=== PATIENT | male | born 1940 | race Caucasian/White ===

== ENCOUNTER → 2017-01-05 | Outpatient (CLI) | payer OTHER | LOC: BMCIMAGING 09:37 | PROVIDERS: ATTEND Family Medicine | DX: R05 Cough (principal) ==

== ENCOUNTER → 2017-07-02 | Outpatient (CLI) | payer OTHER | LOC: BMCIMAGING 14:53 | PROVIDERS: ATTEND Nurse Practitioner Adult Health | DX: R07.81 Pleurodynia (principal) | CPT/HCPCS: 71101-PO ==

== ENCOUNTER 2017-07-07 14:24 | Inpatient (IN) | payer OTHER ==
--- NOTE | 2017-07-07 14:33 | EDPHY ---
HPI/HX/ROS/PE/MDM Narrative: CHIEF COMPLAINT: Chest pain and shortness of breath HPI: The patient is a 76 y/o male arriving via EMS who complains of chest pain and shortness of breath, onset 2.5 hours ago. Two years ago he had a pulmonary embolism due to travelling, but was only on anticoagulants for 6 months following the PE. On Saturday, 5 days ago, he had right-sided chest pain. He went to his PCP and had a chest x-ray taken, which was negative for a pulmonary embolism. On Saturday, 2 days ago, he travelled to [place] from [place]. He noted he felt mildly out of breath before the flight, but once he arrived to the airport he had no shortness of breath. This morning he had a dry cough, with a small amount of blood present. After his shortness of breath began today , he was given Nitroglycerin in the field. Denies a history of cardiac symptoms , leg pain, weakness, numbness or other pertinent symptoms. Portions of this note were transcribed by an ED scribe. I personally performed the history, physical exam, and medical decision making; and confirm the accuracy of the information in the transcribed note. REVIEW OF SYSTEMS: Aside from elements discussed in the HPI, a comprehensive 10-point review of systems was reviewed and is negative. PMH: Pulmonary embolism, 2 years ago Basal cell carcinoma SOCIAL HISTORY: Works as a project control officer Lives in [place] Family and friends at bedside PHYSICAL EXAM: General:Patient is alert, in no acute distress. ENT:Eyes are normal to inspection. ENT inspection normal. Neck: Normal inspection. Full range of motion. Respiratory:No respiratory distress. Breath sounds normal bilaterally. Cardiovascular: Regular rate and rhythm. Strong peripheral pulses. Normal cap refill. Abdomen:The abdomen is nontender to palpation. There are no peritoneal signs. There are normal bowel sounds. Back: Normal to inspection. No tenderness to palpation. Skin: Normal color. No rash. Warm and dry. Extremities: Normal appearance. Full range of motion. Neuro: Oriented x3. Normal motor function. Normal sensory function. ED Course: The patient is a 76 y/o male arriving via EMS who presents with shortness of breath and chest pain, onset 2.5 hours ago. He has a history of a pulmonary embolism 2 years ago, but only took anticoagulants 6 months after the PE. His physical exam is normal. Plan for labs, EKG, and chest CT to rule out pulmonary embolism or myocardial infarction. EKG was ordered and interpreted by myself. Please see [employer] system for official reading. 1535: Spoke with Dr. Infante, radiologist; he reports the patient has a pulmonary embolism with a left infarct. Plan on ECHO, 500mL IV Heparin, and admission of patient. 1540: Reassessed patient and discussed imaging findings and admission. He is comfortable with this plan. 1543: Spoke with hospitalist service, Dr. Chávez accepts admission of this patient. MDM: This patient presents with signs and symptoms of pulmonary embolism, confirmed by CTA of the chest. Upon receipt of the results of the CT, I immediately ordered a heparin drip, spoke to the hospitalist for admission and ordered and echocardiogram. The patient remained hemodynamically stable over the course of his ED stay. I see no evidence of PNA, TAD, ACS, PTx or shock. - Data Points Imaging Results: Imaging Impressions Chest/Thorax CTA 07/07/17 14:34 Impression: 1. Moderate to large volume subsegmental bilateral pulmonary emboli. There is suspicion of right heart strain with flattening of the interventricular septum and mild enlargement of the right atrium and right ventricle. 2. Pulmonary infarcts suspected in the lingula inferolaterally and possibly also left lower lobe. Findings discussed with Fredo Herrera MD at 15:35 hour, 07/07/2017. Imaging: Discussed imaging studies w/ call center director Radiologist, I viewed and interpreted images myself Laboratory Results: Laboratory Results 07/07/17 14:31 07/07/17 14:31 07/07/17 07/07/17 07/07/17 14:31 14:31 14:31 WBC 8.85 10^3/uL 10^3/uL (3.80-9.50) RBC 4.70 10^6/uL 10^6/uL (4.40-6.38) Hgb 14.4 g/dL g/dL (13.7-17.5) POC Hgb Hct 42.6 % % (40.0-51.0) POC Hct MCV 90.6 fL fL (81.5-99.8) MCH 30.6 pg pg (27.9-34.1) MCHC 33.8 g/dL g/dL (32.4-36.7) RDW 12.5 % % (11.5-15.2) Plt Count 190 10^3/uL 10^3/uL (150-400) MPV 10.9 fL fL (8.7-11.7) Neut % (Auto) 57.3 % % (39.3-74.2) Lymph % (Auto) 25.9 % % (15.0-45.0) [place] % (Auto) 11.0 % % (4.5-13.0) Eos % (Auto) 4.6 % % (0.6-7.6) Baso % (Auto) 0.9 % % (0.3-1.7) Nucleat RBC Rel Count 0.0 % % (0.0-0.2) Absolute Neuts (auto) 5.07 10^3/uL 10^3/uL (1.70-6.50) Absolute Lymphs (auto) 2.29 10^3/uL 10^3/uL (1.00-3.00) Absolute Monos (auto) 0.97 10^3/uL H 10^3/uL (0.30-0.80) Absolute Eos (auto) 0.41 10^3/uL H 10^3/uL (0.03-0.40) Absolute Basos (auto) 0.08 10^3/uL 10^3/uL (0.02-0.10) Absolute Nucleated RBC 0.00 10^3/uL 10^3/uL (0-0.01) Immature Gran % 0.3 % % (0.0-1.1) Immature Gran # 0.03 10^3/uL 10^3/uL (0.00-0.10) PT 13.2 SEC SEC (12.0-15.0) INR 1.01 (0.83-1.16) APTT 46.5 SEC H SEC (23.0-38.0) POC Sodium Sodium 140 mEq/L mEq/L (134-144) POC Potassium Potassium 4.0 mEq/L mEq/L (3.5-5.2) POC Chloride Chloride 105 mEq/L mEq/L (97-110) Carbon Dioxide 22 mEq/l mEq/l (22-31) Anion Gap 13 mEq/L mEq/L (8-16) POC BUN BUN 22 mg/dL mg/dL (7-23) Creatinine 1.0 mg/dL mg/dL (0.7-1.3) POC Creatinine Estimated GFR > 60 Glucose 101 mg/dL H mg/dL (70-100) POC Glucose Calcium 9.5 mg/dL mg/dL (8.5-10.4) Troponin I 0.020 ng/mL ng/mL (0.000-0.034) 07/07/17 14:27 WBC RBC Hgb POC Hgb 15.0 gm/dL gm/dL (13.7-17.5) Hct POC Hct 44 % % (40-51) MCV MCH MCHC RDW Plt Count MPV Neut % (Auto) Lymph % (Auto) [place] % (Auto) Eos % (Auto) Baso % (Auto) Nucleat RBC Rel Count Absolute Neuts (auto) Absolute Lymphs (auto) Absolute Monos (auto) Absolute Eos (auto) Absolute Basos (auto) Absolute Nucleated RBC Immature Gran % Immature Gran # PT INR APTT POC Sodium 142 mEq/L mEq/L (134-144) Sodium POC Potassium 3.7 mEq/L mEq/L (3.3-5.0) Potassium POC Chloride 106 mEq/L mEq/L (97-110) Chloride Carbon Dioxide Anion Gap POC BUN 22 mg/dL mg/dL (7-23) BUN Creatinine POC Creatinine 1.1 mg/dL mg/dL (0.7-1.3) Estimated GFR Glucose POC Glucose 104 mg/dL H mg/dL (70-100) Calcium Troponin I Medications Given: Discontinued Medications Heparin Sodium (Porcine) (Heparin Injection) 0 unit IVP EDNOW ONE PRN Reason: Protocol Stop: 07/07/17 15:44 Last Admin: 07/07/17 16:00 Dose: 5,500 i.unit Heparin Sodium (Porcine) (Heparin 50 Units/Ml (Premix)) 500 mls @ 0 mls/hr IV EDNOW ONE; Per Protocol PRN Reason: Protocol Stop: 07/07/17 15:44 Last Admin: 07/07/17 15:58 Dose: 500 mls Point of Care Test Results: 07/07/17 14:27 POC Sodium 142 POC Potassium 3.7 POC Chloride 106 POC BUN 22 POC Creatinine 1.1 POC Glucose 104 H General Initial Vital Signs: Initial Vital Signs Temperature (C) 36.9 C 07/07/17 14:31 Heart Rate 98 07/07/17 14:31 Respiratory Rate 21 H 07/07/17 14:31 Blood Pressure 129/89 H 07/07/17 14:31 O2 Sat (%) 91 L 07/07/17 14:31 O2 Delivery Mode Nasal Cannula O2 (L/minute) 4 Allergies/Adverse Reactions: No Known Allergies Allergy (Unverified 07/07/17 14:44) Home Medications: Medication Instructions Recorded Atorvastatin Calcium [Lipitor 10 10 mg PO HS 07/07/17 mg (*)] Cholecalciferol Vit D3 [Vitamin D3 1,000 units PO DAILY 07/07/17 (*)] Herbals/Supplements -Info Only 1 ea PO DAILY 07/07/17 Levothyroxine [Synthroid 50 mcg 50 mcg PO DAILY06 07/07/17 (*)] Losartan Potassium [Cozaar] 100 mg PO DAILY 07/07/17 amLODIPine BESYLATE [Norvasc 5 mg 5 mg PO DAILY 07/07/17 (*)] Departure - Departure Disposition: [facility] Acute Clinical Impression: Pulmonary embolism and infarction Condition: Serious Report Scribed for: Fredo Herrera Report Scribed by: Deanna Leon Date of Report: 07/07/17 Time of Report: 14:34
--- NOTE | 2017-07-07 14:39 | CPEKG ---
Heart Rate: 94 RR Interval: 638 P-R Interval: 208 QRSD Interval: 98 QT Interval: 368 QTC Interval: 461 P Bryson: 46 QRS Bryson: 75 T Wave Bryson: -13 EKG Severity - ABNORMAL ECG - EKG Impression: SINUS RHYTHM EKG Impression: PROBABLE INFERIOR INFARCT, AGE INDETERMINATE Electronically Signed By: Kirill Oglesby 09-Jul-2017 06:33:19
[2017-07-07 14:46] LABS: % IMMATURE GRANULYOCYTES 0.3 % (0.0-1.1); ABSOLUTE IMMATURE GRANULOCYTES 0.03 10^3/uL (0.00-0.10); ADD DIFF? NO; ADD MORPH? NO; ADD SCAN? NO; ATYPICAL LYMPHOCYTE FLAG 0 (0-99); FRAGMENT RBC FLAG 0 (0-99); HEMATOCRIT 42.6 % (40.0-51.0); HEMOGLOBIN 14.4 g/dL (13.7-17.5); LEFT SHIFT FLG 0 (0-99); LIPEMIA HEMOLYSIS FLAG 90 (0-99); MEAN CELL HEMOGLOBIN 30.6 pg (27.9-34.1); MEAN CELL HEMOGLOBIN CONCENTR. 33.8 g/dL (32.4-36.7); MEAN CELL VOLUME 90.6 fL (81.5-99.8); MEAN PLATELET VOLUME 10.9 fL (8.7-11.7); PLATELET CLUMPS FLAG 0 (0-99); PLATELET COUNT 190 10^3/uL (150-400); RED CELL DISTRIBUTION WIDTH 12.5 % (11.5-15.2)
[2017-07-07] MEDS ORDERED: IOPAMIDOL (ISOVUE 370) 100 ML BTL IV ONE ×2 (14:51→14:53)
[2017-07-07 14:57] LABS: INR 1.01 (0.83-1.16); PROTIME(PATIENT) 13.2 SEC (12.0-15.0)
[2017-07-07 14:58] LABS: APTT 46.5 SEC (23.0-38.0)
[2017-07-07 15:03] LABS: ANION GAP 13 mEq/L (8-16); CALCIUM 9.5 mg/dL (8.5-10.4); CARBON DIOXIDE 22 mEq/l (22-31); CHLORIDE 105 mEq/L (97-110); GLOMERULAR FILTRATION RATE > 60; GLUCOSE 101 mg/dL (70-100); SODIUM 140 mEq/L (134-144)
[2017-07-07] MEDS ORDERED: HEPARIN/DEXTROSE 500 ML IV ONE (15:43)
[2017-07-07] MEDS ORDERED: HEPARIN 10,000 UNIT/10 ML MDV IVP ONE (15:43)
[2017-07-07] MEDS ORDERED: ACETAMINOPHEN 325 MG TAB PO PRN (16:37)
[2017-07-07] MEDS ORDERED: ONDANSETRON 4 MG/2 ML VIAL IVP PRN (16:37)
[2017-07-07] MEDS ORDERED: ONDANSETRON DISINTEGRATING 4 MG TAB PO PRN (16:37)
[2017-07-07] MEDS ORDERED: HEPARIN 10,000 UNIT/10 ML MDV IVP PRN (16:40)
--- NOTE | 2017-07-07 18:03 | GHP ---
[f rep st] HISTORY AND PHYSICAL DATE OF ADMISSION: 07/07/2017 CHIEF COMPLAINT: Shortness of breath. HISTORY OF PRESENT ILLNESS: The patient is a very sweet, 76-year-old man, with a history significant for previous PE 2 years ago. At that time, he was treated for 6 months on warfarin therapy, that en ded in 2015. He followed up with Dr. Carroll, who recommended taking Pradaxa as needed for flights. 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 He had been doing relatively well since that time, although admits to a dry cough over the last 18 months. He has admitted to some slight depression since the of his mother, just over a month shy of her th birthday, in February. Saturday night, he developed some pain in his shoulder. The next day, he started having some pain on his lower left ribcage. He went to see Kathryn Malhotra at the [facility], who felt it was more likely musculoskeletal, as he had no shortness of breath, or other symptoms, and his oxygen saturation was normal at that visit. S he got a chest x-ray and sent him home with recommendations to go to the ER for any emergencies. He started noting worsening dyspnea on exertion on and Saturday. He traveled to [place] Saturday morning and got back this morning, at which time he went to an event at his [facility]. He noted jus t a tinge of blood in his sputum this morning, and then during the event, he became quite short of br eath and just felt terrible. There were 2 doctors at the [facility], who felt that he may have had an other PE, and called 911 and had him transported to the emergency department. He does remember some cramping in his right leg earlier in the week. He has had a previous DVT in his left leg with some e vidence of scarring in that vein since then. He denies any fevers, chills, diaphoresis. No weight c hanges. No significant chest pain, but just some shortness of breath. No abdominal complaints. No nausea, vomiting. No urinary symptoms. No bowel changes. No significant lower extremity edema. No joint pains. REVIEW OF SYSTEMS: A 10-point review of systems was done and is negative with pertinent positives pr esent in the HPI. PAST MEDICAL HISTORY: 1. History of previous VTE disease associated with long plane flight, treated with 6 months of Couma din, followed up by Dr. Richy Carroll. 2. Melanoma, resected in 1984, with no recurrence. 3. History of prostate cancer, status post prostatectomy in 2004. 4. Hypertension. 5. Dyslipidemia. 6. Hypothyroidism. SOCIAL HISTORY: He is a retired math and sciences department chair. His fybrbksc-sy-phi is a physician. He denies any tobacco o r alcohol use currently. He typically is in good shape and quite independent. FAMILY HISTORY: Parents are . CURRENT MEDICATIONS: Amlodipine 5 mg daily, atorvastatin 10 mg daily, vitamin D3, Synthroid 50 mcg d aily, and losartan 100 mg daily. ALLERGIES: No known drug allergies. PHYSICAL EXAMINATION: VITAL SIGNS: Afebrile. Heart rate 104, blood pressure 119/97, respirations 2 4, oxygen sat 92% on 4 L. GENERAL: He is a very pleasant 76-year-old man. He is in some mild distr ess. He is alert and oriented. His speech is clear and fluent. HEENT: Pupils equal, round, and re active. Extraocular movements intact. Mucous membranes moist. Oropharynx clear. NECK: Supple. N o adenopathy. No thyromegaly. HEART: Regular. Mildly tachycardic. No murmur or rub. LUNGS: Ernesto ar bilaterally without wheeze, rhonchi, or rales. ABDOMEN: Soft, slightly obese, nontender, nondist ended. No masses. EXTREMITIES: No significant clubbing, cyanosis, or edema noted. MUSCULOSKELETAL : No joint effusions or deformities. SKIN: Intact. No rash. NEUROLOGIC: Speech is fluent. He i s alert and oriented. He moves all 4 extremities. LABORATORY DATA: CBC is within normal limits. Chemistry shows normal electrolytes and renal functio n. Troponin is negative at 0.02. Electrocardiogram, personally reviewed and interpreted, shows sinu s rhythm, Q-waves in III and aVF. CT angiogram of the chest: Sxbuwolh-su-qhsua volume subsegmental bilateral pulmonary emboli, suspicion of right heart strain with flattening of the interventricular s eptum, and mild enlargement of the right atrium and right ventricle. Pulmonary infarct suspected in the lingula inferolaterally and possibly left lower lobe. ASSESSMENT AND PLAN: 1. A 76-year-old, who presents with a week of mild symptoms of shoulder and chest discomfort, follow ed by minimal hemoptysis and increased dyspnea on exertion today. The patient has [id number] volume pulmonary embolus with evidence of some mild right ventricular strain on CT scan; however, he has a negative troponin, and is not hypotensive, with mild oxygen requirements at this time. I did d iscuss it with Dr. Lucia, who agrees he does not need thrombolytics at this time, but will need inpat ient admission and IV heparin with close monitoring. Plan: Admit to the hospital on telemetry. Sta rt heparin drip. Follow clinically. Vital signs over the next 48 hours. Check echocardiogram and jack castaneda extremity Dopplers. Consider transition to Pradaxa on discharge. 2. Hypertension. Patient is on 2 medications. He is normotensive at this time. We will put in par ameters to hold his blood pressure medications if he becomes hypotensive. 3. Dyslipidemia. Continue statin. 4. Hypothyroidism, stable, on replacement. Most recent thyroid stimulating hormone in April and with in normal limits. 5. Chronic cough, possibly secondary to his losartan therapy. Defer further evaluation of this unti l his pulmonary embolism is asymptomatic and under treatment. He plans on following up with Dr. Jatin estes as an outpatient. 6. Code status: Patient wishes to be full code. /[id number]/MODL
[2017-07-07] MEDS: ATORVASTATIN CALCIUM 10 MG TAB PO SCH (21:07)
[2017-07-07] MEDS: TEMAZEPAM 15 MG CAP PO PRN ×2 (21:07→22:39)
[2017-07-08] MEDS: HYDROCODONE/APAP 5/325 TAB PO PRN ×2 (04:07→20:58)
[2017-07-08] MEDS ORDERED: LEVOTHYROXINE 50 MCG TAB PO SCH (06:00)
[2017-07-08 06:12] LABS: % IMMATURE GRANULYOCYTES 0.3 % (0.0-1.1); ABSOLUTE IMMATURE GRANULOCYTES 0.03 10^3/uL (0.00-0.10); ADD DIFF? NO; ADD MORPH? NO; ADD SCAN? NO; ATYPICAL LYMPHOCYTE FLAG 0 (0-99); FRAGMENT RBC FLAG 0 (0-99); HEMATOCRIT 38.9 % (40.0-51.0); HEMOGLOBIN 13.3 g/dL (13.7-17.5); LEFT SHIFT FLG 0 (0-99); LIPEMIA HEMOLYSIS FLAG 90 (0-99); MEAN CELL HEMOGLOBIN 30.6 pg (27.9-34.1); MEAN CELL HEMOGLOBIN CONCENTR. 34.2 g/dL (32.4-36.7); MEAN CELL VOLUME 89.4 fL (81.5-99.8); MEAN PLATELET VOLUME 10.8 fL (8.7-11.7); PLATELET CLUMPS FLAG 0 (0-99); PLATELET COUNT 182 10^3/uL (150-400); RED BLOOD CELL COUNT 4.35 10^6/uL (4.40-6.38); RED CELL DISTRIBUTION WIDTH 12.5 % (11.5-15.2)
[2017-07-08 06:37] LABS: ANION GAP 11 mEq/L (8-16); CALCIUM 8.9 mg/dL (8.5-10.4); CARBON DIOXIDE 20 mEq/l (22-31); CHLORIDE 105 mEq/L (97-110); CREATININE 0.9 mg/dL (0.7-1.3); GLOMERULAR FILTRATION RATE > 60; GLUCOSE 98 mg/dL (70-100); POTASSIUM 4.5 mEq/L (3.5-5.2); SODIUM 136 mEq/L (134-144)
[2017-07-08] MEDS: amLODIPine BESYLATE 5 MG TAB PO SCH (08:42)
[2017-07-08] MEDS: HEPARIN/DEXTROSE 500 ML IV SCH (08:42)
[2017-07-08] MEDS: CHOLECALCIFEROL VIT D3 1,000 UNITS TAB PO SCH (08:42)
[2017-07-08] MEDS: LOSARTAN POTASSIUM 50 MG TAB PO SCH (08:46)
[2017-07-08] MEDS ORDERED: NON-FORMULARY NEW DRUG (Losartan Potassium [Cozaar] 100 MG) PO SCH (09:00)
[2017-07-08] MEDS ORDERED: PNEUMOC 13-VAL CONJ-DIP CRM/PF 0.5 ML SYR IM ONE (09:02)
--- NOTE | 2017-07-08 09:09 | ECHO ---
[id number] + + [address] : : [place] [address] : : [phone] + Adult Echocardiographic Report + ----+ :Name: Judy BANUELOS Date: 07/07/2017 04:52 PM : : Hospital Admission Number: [id number] Location : ER: :: 1940 Gender: Male Height: 71 in : :Age: 76 yrs Race: WH Weight: 200 lb : :Reason For Study: PE : : BSA: 2.1 meters2 : + ----+ MMode/2D Measurements & Calculations IVSd: 1.4 cm LVIDd: 3.2 cm FS: 47.6 % Ao root diam: 3.8 cm LVPWd: 1.2 cm LVIDs: 1.6 cm EDV(Teich): 39.4 ml LA dimension: 3.3 cm ESV(Teich): 7.8 ml EF(Teich): 80.3 % Normal Measurement Values: + + :LVIDd (3.5-5.7cm) IVSd (0.6-1.1cm) LVPWd (0.6-1.1cm) Aortic Root (2.0-3.7cm)Left Atrium (1.5-4.0cm): :LV Vol(d) (76-115ml) LV Vol(s) (29-48ml) Ejec Fraction (50-65%)PV Dar (0.6- 1.2m/s) TV Dar (0.4-1.0m/s) : :MV E Dar (0.8-1.0m/s)MV A Dar (0.3-1.0m/s)LVOT Dar (0.7-1.2m/s) Asc Ao Dar ( 0.9-1.8m/s) : + + Doppler Measurements & Calculations MV E max dar: 25.7 cm/sec Ao V2 max: 130.0 cm/sec TR max dar: 392.0 cm/sec MV A max dar: 103.0 cm/sec Ao max P.8 mmHg TR max P.5 mmHg MV E/A: 0.25 RAP systole: 10.0 mmHg RVSP(TR): 71.5 mmHg Left Ventricle The left ventricular cavity is small. There is mild concentric left ventricular hypertrophy. Ejection Fraction = 75-80%. Flattened septum is consistent with RV pressure/volume overload. Right Ventricle The right ventricle is moderate to severely dilated. The right ventricular systolic function is severely reduced. Atria The left atrial size is normal. The right atrium is moderate to severely dilated. The interatrial septum is intact with no evidence for an atrial septal defect. Mitral Valve The mitral valve is normal in structure and function. There is no evidence of mitral valve prolapse. There is no mitral valve stenosis. There is mild mitral regurgitation. Tricuspid Valve Normal tricuspid valve. Right ventricular systolic pressure is 71mmHg. There is severe tricuspid regurgitation. There is Doppler evidence for moderate to severe pulmonary hypertension. Aortic Valve The aortic valve is trileaflet. The aortic valve opens well. There is no aortic stenosis. There is no aortic insufficiency. Pulmonic Valve The pulmonic valve is normal in structure and function. There is no pulmonic valvular regurgitation. Great Vessels The aortic root is normal size. Pericardium/Pleural There is no pericardial effusion. Conclusion A complete two-dimensional transthoracic echocardiogram was performed (2D, M-mode, Doppler and color flow Doppler). The left ventricular cavity is small. There is mild concentric left ventricular hypertrophy. Ejection Fraction = 75-80%. Flattened septum is consistent with RV pressure/volume overload. The right ventricle is moderate to severely dilated. The right ventricular systolic function is severely reduced. The right atrium is moderate to severely dilated. There is mild mitral regurgitation. There is severe tricuspid regurgitation. There is Doppler evidence for severe pulmonary hypertension. Right ventricular systolic pressure is 71mmHg. Final Reading Physician: Kirill Oglesby MD electronically signed on 07/08/2017 09:08 AM Ordering Physician: Fredo Herrera Performed By: Paty Persaud, CS
--- NOTE | 2017-07-08 10:39 | HOSPPROG ---
Hospitalist Progress Note Assessment/Plan: 76-year-old man with previous pulmonary embolus is admitted with acute shortness of breath and found to have large volume PE with evidence of right heart strain. Overall he is hemodynamically stable with improved heart rate down to 85 and a stable blood pressure. He is requiring supplemental oxygen but his needs have come down. Do not think he needs thrombolytics but will continue IV heparin for another 24 hours to make sure. # moderate/large volume PE with evidence of right heart strain. * Continue IV heparin case he needs thrombolytics * Will transition to Pradaxa and would like to watch an additional 24 hours on Pradaxa prior to discharge * Continue PCU monitoring * He will follow up with Dr. Richy Carroll as an outpatient. * Will discuss possible hypercoag work up here or as outpatient with Dr. Carroll. # HTN: Currently stable no evidence of hypotension # hypothyroidism on replacement # chronic cough, worsened with PE. Patient will follow up with Dr. Carroll as an outpatient, possibly secondary to losartan although he has been on that medicine for many years. Subjective: Breathing is getting a bit easier, no chest pains today. No leg swelling or pain Objective: Vital Signs Temp Pulse Resp BP Pulse Ox 36.8 C 87 13 118/83 H 94 07/08/17 08:00 07/08/17 08:00 07/08/17 08:00 07/08/17 08:00 07/08/17 08:57 Laboratory Results 07/08/17 04:58 07/08/17 04:58 07/07/17 07/08/17 07/09/17 05:59 05:59 05:59 Intake Total 1020 Output Total 0 Balance 1020 PT 13.2 SEC (12.0-15.0) 07/07/17 14:31 INR 1.01 (0.83-1.16) 07/07/17 14:31 - Physical Exam Constitutional: no apparent distress, not in pain Eyes: PERRL, anicteric sclera, EOMI Ears, Nose, Mouth, Throat: moist mucous membranes, hearing normal Cardiovascular: regular rate and rhythym, no murmur, rub, or gallop, No edema Respiratory: no respiratory distress, no rales or rhonchi, clear to auscultation Gastrointestinal: normoactive bowel sounds, soft, non-tender abdomen, no palpable masses Genitourinary: no bladder fullness, No isaac in urethra Skin: warm, normal color Neurologic: AAOx3 Psychiatric: interacting appropriately, not anxious, not encephalopathic ICD10 Worksheet Patient Problems: Problems Problem Status Onset Pulmonary embolism and infarction Acute
--- NOTE | 2017-07-08 16:19 | ASMTCMCOM ---
CM Note CM Note Notes: 07/08/2017 Case Management Note: Reviewed chart, spoke w/RN. Pt is active, lives independently, with regular travel overseas. No therapy evals ordered. Case Management d/c poc: Home Independent when medically stable d/t age and activity levels prior to admission. Case Management available if needs change. Date Signed: 07/08/2017 04:19 PM Electronically Signed By:Cici Coffman
[2017-07-08] MEDS ORDERED: SENNOSIDES/DOCUSATE SODIUM TAB PO PRN (20:52)
[2017-07-08] MEDS ORDERED: POLYETHYLENE GLYCOL 3350 17 GM PKT PO PRN (20:52)
[2017-07-08] MEDS: GUAIFENESIN/DM 10 ML UDCUP PO PRN (20:56)
[2017-07-08] MEDS: TEMAZEPAM 15 MG CAP PO PRN (20:56)
[2017-07-08] MEDS: ATORVASTATIN CALCIUM 10 MG TAB PO SCH (20:56)
[2017-07-09] MEDS: HYDROCODONE/APAP 5/325 TAB PO PRN ×2 (01:57→20:14)
[2017-07-09] MEDS: GUAIFENESIN/DM 10 ML UDCUP PO PRN ×4 (01:57→20:14)
[2017-07-09] MEDS: HEPARIN/DEXTROSE 500 ML IV SCH (02:01)
[2017-07-09 04:00] LABS: % IMMATURE GRANULYOCYTES 0.5 % (0.0-1.1); ABSOLUTE IMMATURE GRANULOCYTES 0.04 10^3/uL (0.00-0.10); ADD DIFF? NO; ADD MORPH? NO; ADD SCAN? NO; ATYPICAL LYMPHOCYTE FLAG 0 (0-99); FRAGMENT RBC FLAG 0 (0-99); HEMATOCRIT 39.5 % (40.0-51.0); HEMOGLOBIN 13.4 g/dL (13.7-17.5); LEFT SHIFT FLG 0 (0-99); LIPEMIA HEMOLYSIS FLAG 90 (0-99); MEAN CELL HEMOGLOBIN 30.7 pg (27.9-34.1); MEAN CELL HEMOGLOBIN CONCENTR. 33.9 g/dL (32.4-36.7); MEAN CELL VOLUME 90.6 fL (81.5-99.8); MEAN PLATELET VOLUME 10.8 fL (8.7-11.7); PLATELET CLUMPS FLAG 10 (0-99); PLATELET COUNT 194 10^3/uL (150-400); RED BLOOD CELL COUNT 4.36 10^6/uL (4.40-6.38); RED CELL DISTRIBUTION WIDTH 12.6 % (11.5-15.2)
[2017-07-09 04:25] LABS: ALANINE AMINOTRANSFERASE 27 IU/L (21-72); ALBUMIN 3.2 g/dL (3.5-5.0); ALKALINE PHOSPHATASE 87 IU/L (38-126); ANION GAP 11 mEq/L (8-16); ASPARTATE AMINOTRANSFERASE 20 IU/L (17-59); BILIRUBIN,TOTAL 0.6 mg/dL (0.1-1.4); CARBON DIOXIDE 21 mEq/l (22-31); CHLORIDE 106 mEq/L (97-110); GLOMERULAR FILTRATION RATE > 60; GLUCOSE 123 mg/dL (70-100); POTASSIUM 4.2 mEq/L (3.5-5.2); SODIUM 138 mEq/L (134-144); TOTAL PROTEIN 5.6 g/dL (6.3-8.2)
[2017-07-09] MEDS: CHOLECALCIFEROL VIT D3 1,000 UNITS TAB PO SCH (08:26)
[2017-07-09] MEDS: LOSARTAN POTASSIUM 50 MG TAB PO SCH (08:26)
[2017-07-09] MEDS: LEVOTHYROXINE 50 MCG TAB PO SCH (08:26)
--- NOTE | 2017-07-09 12:57 | HOSPPROG ---
Hospitalist Progress Note Assessment/Plan: 76-year-old man with previous pulmonary embolus is admitted with acute shortness of breath and found to have large volume PE with evidence of right heart strain. Overall he is hemodynamically stable with improved heart rate down to 75 and a stable blood pressure. He is requiring supplemental oxygen but his needs have come down. Do not think he needs thrombolytics but will continue IV heparin for another 24 hours to make sure. # moderate/large volume PE with evidence of right heart strain and pulmonary hypertension * Continue IV heparin case he needs thrombolytics, transitioned to Pradaxa tomorrow morning * consider monitoring on Pradaxa if patient has any concerning vital signs for 24 hours given large volume pulmonary embolism * Continue PCU monitoring * He will follow up with Dr. Richy Carroll as an outpatient on Saturday * hyper coag panel done and pending to follow up with Dr. Carroll # severe pulmonary hypertension and right heart strain secondary to acute large volume PE * consider follow-up echo in 1 month # HTN: Currently stable no evidence of hypotension # hypothyroidism on replacement # chronic cough, worsened with PE. will do a trial off of his losartan and discontinue it at this time. Will continue amlodipine for blood pressure control. Patient will follow up with Dr. Arredondo for his blood pressure checks as well as cough to see if his cough improves off of the ARB disposition: Changed to Pradaxa tomorrow morning, consider discharge late tomorrow afternoon or morning If he continues to do well. Subjective: Feeling better. No bruising or bleeding noted. Objective: Vital Signs Temp Pulse Resp BP Pulse Ox 36.6 C 84 21 H 108/78 91 L 07/09/17 07:20 07/09/17 11:48 07/09/17 11:48 07/09/17 11:48 07/09/17 11:48 Laboratory Results 07/09/17 03:20 07/09/17 03:20 07/08/17 07/09/17 07/10/17 05:59 05:59 05:59 Intake Total 1020 1300 Output Total 0 Balance 1020 1300 PT 13.2 SEC (12.0-15.0) 07/07/17 14:31 INR 1.01 (0.83-1.16) 07/07/17 14:31 - Physical Exam Constitutional: no apparent distress Eyes: PERRL Cardiovascular: regular rate and rhythym, no murmur, rub, or gallop Respiratory: no respiratory distress, clear to auscultation Gastrointestinal: normoactive bowel sounds Skin: warm, other ( No ecchymoses or petechiae) Musculoskeletal: no muscle tenderness, normal joint ROM Neurologic: AAOx3 Psychiatric: interacting appropriately, not anxious, not encephalopathic ICD10 Worksheet Patient Problems: Problems Problem Status Onset Pulmonary embolism and infarction Acute
[2017-07-09] MEDS: TEMAZEPAM 15 MG CAP PO PRN (20:14)
[2017-07-09] MEDS: ATORVASTATIN CALCIUM 10 MG TAB PO SCH (20:15)
[2017-07-10] MEDS: HYDROCODONE/APAP 5/325 TAB PO PRN ×2 (02:28→21:01)
[2017-07-10] MEDS: GUAIFENESIN/DM 10 ML UDCUP PO PRN ×2 (02:29→21:00)
[2017-07-10] MEDS: DABIGATRAN ETEXILATE MESYL 150 MG CAP PO SCH ×2 (07:42→19:35)
[2017-07-10] MEDS: LEVOTHYROXINE 50 MCG TAB PO SCH (07:43)
[2017-07-10] MEDS: amLODIPine BESYLATE 5 MG TAB PO SCH (07:43)
[2017-07-10] MEDS: CHOLECALCIFEROL VIT D3 1,000 UNITS TAB PO SCH (07:43)
[2017-07-10 14:13] LABS: PROTEIN C ACTIVITY 119 % (70 - 150)
--- NOTE | 2017-07-10 17:10 | HOSPPROG ---
Hospitalist Progress Note Assessment/Plan: 76-year-old male with acute pulmonary emboli of large volume. Patient is new to me today. Today he is feeling improved and is post 1 day of Pradaxa anticoagulation off heparin. He has no complaints of chest pain shortness of breath cough hemoptysis his oxygen saturations adequate on room air. - moderate/large volume PE with evidence of right heart strain and pulmonary hypertension * Continue IV heparin case he needs thrombolytics, transitioned to Pradaxa tomorrow morning * consider monitoring on Pradaxa if patient has any concerning vital signs for 24 hours given large volume pulmonary embolism * Continue PCU monitoring * He will follow up with Dr. Richy Carroll as an outpatient on Saturday * hyper coag panel done and pending to follow up with Dr. Carroll * Will continue Pradaxa today and monitor the patient for another 24 hours. This studies of the use of Pradaxa for PE noted that those patient has received heparin for 5-10 days and then was switched to Pradaxa. Those vital signs are stable today believe another 24 hours monitoring will be helpful. - severe pulmonary hypertension and right heart strain secondary to acute large volume PE * consider follow-up echo in 1 month -HTN: Currently stable no evidence of hypotension; BP is in good control -hypothyroidism on replacement -chronic cough, worsened with PE. will do a trial off of his losartan and discontinue it at this time. Will continue amlodipine for blood pressure control. Patient will follow up with Dr. Arredondo for his blood pressure checks as well as cough to see if his cough improves off of the ARB disposition: Changed to Pradaxa tomorrow morning, consider discharge late tomorrow afternoon or morning If he continues to do well. plan:- Continue Pradaxa and monitor respirations oxygenation and vital signs. - Stop losartan due to cough and continue his amlodipine for blood pressure medication. - Have patient check his own blood pressure while off losartan and follow up with his PCP for blood pressure management Subjective: alert and in no distress no complaints of chest pain shortness of breath hemoptysis or pleuritic chest pain Objective: Vital Signs Temp Pulse Resp BP Pulse Ox 36.6 C 70 20 122/80 H 93 07/10/17 16:00 07/10/17 16:00 07/10/17 16:00 07/10/17 16:00 07/10/17 16:00 Laboratory Results 07/09/17 03:20 07/09/17 03:20 07/09/17 07/10/17 07/11/17 05:59 05:59 05:59 Intake Total 1300 3790 Balance 1300 3790 PT 13.2 SEC (12.0-15.0) 07/07/17 14:31 INR 1.01 (0.83-1.16) 07/07/17 14:31 - Pending Discharge Pending Discharge Within 24 Hours: Yes Pending Discharge Date: 07/11/17 Pending Discharge Time: 11:00 - Physical Exam Constitutional: no apparent distress Eyes: PERRL Ears, Nose, Mouth, Throat: moist mucous membranes, hearing normal Cardiovascular: regular rate and rhythym, no murmur, rub, or gallop Respiratory: no respiratory distress, no rales or rhonchi, clear to auscultation Gastrointestinal: normoactive bowel sounds, soft, non-tender abdomen, no palpable masses Genitourinary: no bladder fullness Skin: warm Musculoskeletal: full muscle strength Neurologic: AAOx3, CN II-XII Intact Psychiatric: interacting appropriately ICD10 Worksheet Patient Problems: Problems Problem Status Onset Pulmonary embolism and infarction Acute
[2017-07-10] MEDS: ATORVASTATIN CALCIUM 10 MG TAB PO SCH (19:35)
[2017-07-10] MEDS: TEMAZEPAM 15 MG CAP PO PRN (21:01)
[2017-07-11 07:50] VITALS: BP 115/76; PULSE 65; RESP 13; TEMP 98.7; O2SAT 89
[2017-07-11] MEDS: DABIGATRAN ETEXILATE MESYL 150 MG CAP PO SCH (09:10)
[2017-07-11] MEDS: amLODIPine BESYLATE 5 MG TAB PO SCH (09:11)
[2017-07-11] MEDS: CHOLECALCIFEROL VIT D3 1,000 UNITS TAB PO SCH (09:11)
[2017-07-11] MEDS: LEVOTHYROXINE 50 MCG TAB PO SCH (09:11)
--- NOTE | 2017-07-11 10:52 | GDS ---
[f rep st] DISCHARGE SUMMARY ACUTE DIAGNOSES: 1. Acute pulmonary emboli. 2. Hypertension. 3. Chronic cough. NEW DIAGNOSIS: Cough, probably secondary to losartan. The losartan has been stopped. CHRONIC DIAGNOSIS: Hyperlipidemia. CONSULTATIONS: None. PROCEDURES: 1. CTA of the chest showing moderate to large volume subsegmental bilateral pulmonary emboli with caceres spicion for right heart strain. A pulmonary infarct is suspected in the lingula. 2. Echocardiogram showing an EF of 70%-80%. Flattened septum consistent with RV pressure and volume overload. Moderate to severely dilated right ventricle and right ventricular systolic function is s everely reduced, with an RVSP estimated at 71 mmHg. HOSPITAL COURSE: This is a 76-year-old male presented with shortness of breath. He had a prior hist ory of a DVT. He was noted to have moderate to large volume pulmonary emboli bilaterally and was sta rted on heparin drip. Sonography of the lower extremities showed a DVT in the right popliteal vein e xtending through the calf veins, and DVT in the left femoral and popliteal veins of an indeterminate age. He received 3 days of IV heparin and then was transitioned to Pradaxa 150 mg twice daily succes sfully. Vital signs remained stable. He was briefly hypotensive during initial evaluation, but ongo ing he maintain good pressure oxygen saturation. Ultimately, he was normal on room air. Cardiac rhy thm remained stable in a sinus rhythm, sinus tachycardia. DISCHARGE MEDICATIONS: NEW MEDICATIONS: Pradaxa 150 mg twice daily. Amlodipine 5 mg daily. [place]ilton 5/325 mg q.4 hours p.r.n. pain. STOPPED MEDICATIONS: Losartan due to a cough. CONTINUED MEDICATIONS: Amlodipine 5 mg daily. Synthroid 50 mcg daily. Lipitor 10 mg daily. Herbal supplementation and vitamin D3. Note that we have stopped the losartan because of his cough, which he has reported for the last 18 mo [facility]. Amlodipine has been substituted for this. PLAN: The gentleman will follow up with Dr. Richy Carroll in approximately 1-2 weeks to ongoing follo w his pulmonary function. He should also follow up with Dr. Carroll or his PCP regarding management of his hypertension as we stop the losartan and will be managing up with amlodipine. TIME: This discharge required 40 minutes, greater than 50% to senior counsel commercial and coordinate his care and ex plain matters regarding the losartan. /[id number]/MODL
[2017-07-11 13:41] LABS: PROTEIN S ACTIVITY 47 % (65 - 160)
[2017-07-11 16:37] LABS: INTERPRETATION See Comments
--- NOTE | 2017-07-11 16:50 | ASDISCHSUM ---
Discharge Information Plan Status:Home with No Needs Medically Cleared to Leave: Discharge Date:07/11/2017 11:38 AM CM D/C Disposition:Home, Routine, Self-Care ADT D/C Disposition:Home, Routine, Self-Care Projected Discharge Date:07/11/2017 11:38 AM Transportation at D/C:Family Discharge Delay Reason: Follow-Up Date:07/11/2017 11:38 AM Discharge Slot: Final Diagnosis: Placement Information Patient Contact Information Contact Name:SARAH Relationship: Address:[address] Work Phone: City:[facility] Phone: [facility]/Zip Code:[place] [address] Email: Financial Information Financial Class: Primary Plan Desc:MEDICARE INPATIENT Primary Plan Number:[id number] Secondary Plan Desc:SAHIL PPO Secondary Plan Number:[id number] Assessment Information [facility] CM Progress Note CM Note CM Note Notes: 07/08/2017 Case Management Note: Reviewed chart, spoke w/RN. Pt is active, lives independently, [place]. No therapy evals ordered. Case Management d/c poc: Home Independent when medically stable d/t age and activity levels prior to admission. Case Management available if needs change. Date Signed: 07/08/2017 04:19 PM Electronically Signed By:Cici Coffman RN Intervention Information Intervention Type:*Incorrect Registration Date of Service:07/07/2017 04:37 PM Patient Type:Inpatient Staff Member:Erendira Causey Hours:0.25 Discipline: Severity:1 (0-1 Hours) Comment:Registered observation, admit order david damon for inpatient status. Intervention Type:*IM-Signed Date of Service:07/11/2017 11:12 AM Patient Type:Inpatient Staff Member:Emely Messina Hours: Discipline: Severity: Comment:
== END 2017-07-11 11:38 | disposition home or self-care (01) | DRG 176 ==
LOC: EDUNIT# → OBSVTOIN 16:37 → F2W 17:07
PROVIDERS: ADMIT Family Medicine; ATTEND Internal Medicine
DX: I26.99 Other pulmonary embolism without acute cor pulmonale (principal); I82.433 Acute embolism and thrombosis of popliteal vein, bilateral; I82.412 Acute embolism and thrombosis of left femoral vein; I10 Essential (primary) hypertension; R05 Cough; E78.5 Hyperlipidemia, unspecified; E03.9 Hypothyroidism, unspecified; Z86.711 Personal history of pulmonary embolism; Z86.718 Personal history of other venous thrombosis and embolism; Z85.820 Personal history of malignant melanoma of skin; Z23 Encounter for immunization; Z85.46 Personal history of malignant neoplasm of prostate
CPT/HCPCS: 82947-QW; 85220-90; 85300-90; 85303-90; 85306-90; 85520-90; 86147-90; 96365; G0009; J1644; Q9967